=== PATIENT | male | born 1940 | race Caucasian/White ===

== ENCOUNTER 2017-03-13 05:47 | Day surgery (SDC) | payer MEDICARE, BC ==
--- NOTE | 2017-02-26 14:19 | HP ---
Chief Complaint - Chief Complaint Date of Service: 02/26/17 Chief Complaint: need a colonoscopy History of Present Illness: 76 yea old male who ohad a a colonoscopy about 7 years ago and had polyps removed (cannot access that report in [employer]) and presents for a colonoscopy. No blood in stools, no changes in bowel habits. Mother had colon cancer, but did not from it. Small amount of weight loss recently, but has been out gardening alot. On coumadin from a stroke in 2012. May also have hx of Afib... cannot find in computer though. - Patient's Past Medical History Patient History - Medical: Other - colon,diverticulosis, shingles Patient History - Cardiac/Respiratory: Atrial Fibrillation, TIA Patient History - Cancer: Prostate Patient History - Surgical Procedures: Appendectomy, Colonoscopy, Other - prostatectomy Patient History - Other: None - Family History Family History:: no untoward family reactions to anesthesia, no familial bleeding tendencies, no family history of clotting disorders, no family history of premature - Family History Mother Family History - Medical: , Other - old age Family History - Cancer: Colon Father Family History - Medical: , Renal Failure Family History - Cardiac/Respiratory: Coronary Heart Disease Family History - Cancer: Prostate - Social History Living Situations: spouse Abuse History: No History of abuse Psych History: No pertinent hx Does anyone smoke in the home?: No Smoking Status: Never smoker Alcohol Use: sober Drug Use: none - Immunizations Immunizations Up to Date: No Hx Pneumococcal Vaccination: Yes History of Influenza Vaccine: Yes Review Of Systems (GEN) - Review of Systems Generalized/Overall Review: Absent: Weakness, Chills, Malaise, Fatigue, Weight loss, Weight gain Respiratory: Absent: Cough, Shortness of Breath, Stridor, Wheezing Cardiac: Absent: Chest Pain, Palpitations Abdominal: Absent: Nausea, Vomiting, Abdominal Pain, Constipation, Diarrhea, Bright blood from rectum Genitourinary: Present: Frequency, Dribbling, Nocturia. Absent: Incontinent, Retention Musculoskeletal: Present: Joint Pain, Joint Swelling Neurological: Absent: Headache, Anxiety, Depressed, Numbness, Tingling, Weakness Skin: Absent: Dryness Endocrine: Absent: Intolerance to Cold Immunizations: IMMUNIZATION HX History of Influenza Vaccine Yes Hx Pneumococcal Vaccination Yes Allergies/Adverse Reactions: Allergies Allergy/AdvReac Type Severity Reaction Status Date / Time No Known Allergies Allergy Verified 03/05/16 13:34 Home Medications: HOME MEDICATIONS Atenolol [Tenormin] 50 mg PO DAILY 01/05/16 [Last Taken Unknown] Cholecalciferol (Vitamin D3) [Vitamin D3] 1,000 unit PO DAILY 01/05/16 [Last Taken Unknown] Leland-3 Fatty Acids [Fish Oil] 500 mg PO TID 01/05/16 [Last Taken Unknown] Vitamin E 1,000 unit PO DAILY 01/05/16 [Last Taken Unknown] Warfarin Sodium [Coumadin] 2.5 mg PO DAILY 01/05/16 [Last Taken Unknown] Ascorbic Acid [Vitamin C] 1,000 mg PO DAILY 03/04/16 [Last Taken Unknown] Multivitamins [Multivitamin Eriberto] 1 cap PO DAILY 03/04/16 [Last Taken Unknown] Oxybutynin Chloride [Ditropan] 5 mg PO BID 02/26/17 [Last Taken Unknown] Exam - Exam Vital Signs: Vital Signs - Last Taken Temp 36..4 02/26/17 Pulse Resp BP 135/75 02/26/17 Pulse Ox Ht 5'7 Wt 156#s Constitutional: Present: Alert, Oriented x3, Cooperative, Well developed, Well nourished, No distress ENT Exam: Present: hearing grossly normal Eye Exam: bilateral eye: normal inspection Neck: Present: non-tender, full range of motion Respiratory: Present: chest non-tender, lungs clear, normal breath sounds, no respiratory distress, no accessory muscle use Cardiovascular/Chest: Present: normal peripheral pulses, regular rate, rhythm, no chest tenderness, no edema, no murmur Peripheral Pulses: radial (R): 2+, radial (L): 2+ Abdomen: Present: Normal bowel sounds, soft, nontender, nondistended, no rebound tenderness, no hepatospenomegaly /Rectal: Present: Exam deferred Extremity: Present: normal range of motion, non-tender, normal inspection Skin Exam: Present: normal color, warm/dry Neurologic: Present: alert, normal mood/affect, oriented x 3 Appearance: Present: appropriate appearance, appropriate insight, no memory impairment Eye contact: Present: cooperative, good eye contact, normal speech Thoughts: Present: normal thought pattern, no apparent hallucination Assessment/Plan - Narrative Narrative: 76 yo male with family history of colon cancer, personal history of polyps and overdue for a colonoscopy. RBIC discussed. Prep discussed. Need to stop coumadin because of high likelihood of polyps and an intervention. He agrees. Low likelihood of perforation. Scheduled for next week and stopping coumadin Thursday. - Assessment/Plan (1) Prostate CA Problem: Chronic (2) Screening for colon cancer Problem: Acute (3) HTN (hypertension) Problem: Chronic (4) Stroke Problem: Resolved
--- OUTSIDE RECORDS SUMMARY | 2017-03-13 05:52 | XMS REPORT | Continuity of Care Document ---
:1940 Author Organization [facility] ([facility]) Address [address] [place] [address] Phone [phone] Care Team Providers Name Role Phone Tomi Betancourt Primary Care Provider [phone] Source Comments This disclosure is being made pursuant to the Care Everywhere program, applicable federal and state laws, and may not contain all informaitonavailable regarding this patient.[facility] ([facility]) Active Allergies and Adverse Reactions No Active Allergies Current Medications Not on file Active Problems Problem Noted Date Malignant neoplasm of prostate 10/29/2006 Immunizations Name Dates Previously Given Next Due Influenza, unspecified 11/27/2006 Social History Tobacco Use Types Packs/Day Years Used Date Never Assessed Last Filed Vital Signs Vital Sign Reading Time Taken Blood Pressure 156/83 11/20/2008 2:30 PM [employer] Pulse 93 11/20/2008 2:30 PM [employer] Temperature 35.6 C (96.08 F) 11/20/2008 2:30 PM [employer] Respiratory Rate 16 05/02/2008 3:10 PM CDT Height 1.685 m (5' 6.33") 05/02/2008 3:10 PM CDT Weight 75.896 kg (167 lb 5.1 oz) 05/18/2008 3:33 PM CDT Body Mass Index 26.73 05/18/2008 3:33 PM CDT Oxygen Saturation - - Plan of Care Health Maintenance Due Date Last Done Comments Hepatitis B Vaccine (1 of 3 - Primary Series) 1940 Tdap Vaccine 1949 Lipid Disorder Screening 1956 Td Vaccine 1958 Colonoscopy 11/30/1988 Zoster Vaccine 1998 Pneumococcal Vaccine (1 of 2 - PCV13) 2003 Influenza Vaccine: Seasonal (Season Ended) 2017 11/27/2006 Results from Last 3 Months Not on file
[2017-03-13] MEDS ORDERED: RINGERS SOLUTION,LACTATED 1,000 ML IV PRN ×2 (06:00→07:37)
[2017-03-13] MEDS ORDERED: RINGERS SOLUTION,LACTATED 1,000 ML IV ONE (06:32)
--- NOTE | 2017-03-13 07:43 | OR ---
Operative Report - Dictated Report Narrative: DATE OF PROCEDURE: 03/13/2017 PREOPERATIVE DIAGNOSIS: #1 Screening colonoscopy 2 family history of colon cancer POSTOPERATIVE DIAGNOSIS: #1 Screening colonoscopy #2 family history of colon cancer #3 diverticulosis #4 small (5 mm) polyp upper rectum pending final pathology #5 flat polyp of cecum, 2 x 6 cm OPERATION: Colonoscopy with biopsy of lesion in cecum, and cold snare polypectomy with clip application of polyp of rectum SURGEON: Timo Andino M.D. [facility] ANESTHESIA : Nava Davis CRNA sedation INDICATIONS: This is a 76 year old male who presents for a screening colonoscopy. He is had previous polyps, and family history colon cancer, and is on Coumadin. We stopped Coumadin 5 days prior. I have discussed the risks, benefits, indications, and contraindications for colonoscopy with the possibility of biopsy and/or polypectomy. He understands, agrees, and wishes to proceed. He has undergone a SUPREP and has tolerated it well. PROCEDURE: The patient was brought to the operating theater and placed into the left lateral decubitus position. The patient underwent sedation per anesthesia , and a digital rectal exam was performed. This was noted to be unremarkable. The patient was noted to have no internal or external hemorrhoids. The Olympus video colonoscope was introduced and advanced into the rectum. The rectum was normal in appearance. However in the upper rectum, at approximately 15 cm there was a small 5 mm pedunculated polyp. Picture was taken. The scope was then advanced through the sigmoid, where diverticular disease was noted. The scope was then advanced to the cecum using standard reduction techniques. The appendiceal orifice was noted. The ileocecal valve was noted. The prep appeared to be excellent with a Keota prep score of 9. Just next to the appendiceal orifice, was a flat triangular-shaped polyp. It was along a fold. Pictures were taken. Biopsy forceps was used to take a biopsy on either end, and for measurement purposes. The polyp appeared to be a centimeter at one and up to 3 cm on the other. It was approximately 5-6 cm in length. It appeared to be benign. It was not removable in my hands. The scope was withdrawn slowly as the ascending, transverse, descending, and sigmoid colon were examined in a circumferential fashion. The scope was brought back into the rectum where the polyp at 15 cm was snared, and removed, and retrieved via the polyp trap. Because he is going to restart his Coumadin, and I did not want to confuse a postop bleed from either the biopsies at the cecum or the snare at the rectum, a clip was applied to the base of the polypectomy site. There was good hemostasis. The air was decompressed, and the scope was then removed. Withdrawal time was 10 minutes, not including polypectomy or clip application. POSTOPERATIVE CONDITION: The patient was awakened and taken to the ambulatory surgery center in good condition. No complications were encountered. FINDINGS: Flat polyp of cecum measuring approximately 5-6 cm in length, triangular-shaped 1 cm up to 3 cm in width, pending biopsy. Small pedunculated 5 mm polyp of upper rectum, removed, and pending pathology. Sigmoid diverticulosis. Specimens: Two EBL: minimal The findings were discussed with the patient and his . I recommend a referral to Dr. Poole at the [facility] for possible endoscopic removal of this polyp of the cecum. Diverticulosis booklet was also reviewed and given to the patient. Pictures were given to the patient. He can restart his Coumadin as we do not know when we can get an appointment for him. We will also call early next week with the biopsy results.
[2017-03-13 08:48] VITALS: BP 122/69
== END 2017-03-13 05:48 | disposition home or self-care (01) ==
LOC: AMB 05:47
PROVIDERS: ATTEND Surgery
PROC: 0DBP8ZX Excision of Rectum, Via Natural or Artificial Opening Endoscopic, Diagnostic (ICD-10-PCS; 2017-03-13)
PROC: 0DBH8ZX Excision of Cecum, Via Natural or Artificial Opening Endoscopic, Diagnostic (ICD-10-PCS; principal; 2017-03-13 07:00)
DX: Z12.11 Encounter for screening for malignant neoplasm of colon (principal); K62.1 Rectal polyp; D12.0 Benign neoplasm of cecum; K63.5 Polyp of colon; K57.30 Diverticulosis of large intestine without perforation or abscess without bleeding; I48.91 Unspecified atrial fibrillation; I10 Essential (primary) hypertension; C61 Malignant neoplasm of prostate; Z68.24 Body mass index [BMI] 24.0-24.9, adult